=== PATIENT | female | born 1950 | race Native Hawaiian/Other Pacific Islander ===

== ENCOUNTER 2016-11-03 10:23 | Outpatient (CLI) | payer OTHER ==
[~2016-11-03 10:23] MED LIST: ALPR0.5T24 PO; DEPO-ESTRADI5 MG/ML IM; DEXL60CA4 PO; DULO60CA2 PO; LUBI24CA PO; RANI150T78 PO
== END 2016-11-03 19:08 | disposition home or self-care (01) ==
LOC: NM 10:23
DX: K21.9 Gastro-esophageal reflux disease without esophagitis (principal); R14.0 Abdominal distension (gaseous)
CPT/HCPCS: A9541

== ENCOUNTER 2017-05-26 11:45 | Outpatient (CLI) | payer OTHER | END 2017-05-26 12:45 | disposition home or self-care (01) | LOC: RAD 11:45 | DX: R05 Cough (principal); R06.02 Shortness of breath ==

== ENCOUNTER 2017-09-26 10:48 | Outpatient (CLI) | payer OTHER | END 2017-09-26 18:02 | disposition home or self-care (01) | LOC: MAMMO 10:48 | DX: Z12.31 Encounter for screening mammogram for malignant neoplasm of breast (principal) ==

== ENCOUNTER 2017-10-13 12:38 | Outpatient (CLI) | payer OTHER ==
[2017-10-13 13:33] LABS: PLATELET COUNT 287 K/uL (152-353)
[2017-10-13 13:52] LABS: POTASSIUM 4.6 mmol/L (3.6-5.2); SODIUM 137 mmol/L (136-145)
== END 2017-10-14 05:20 | disposition home or self-care (01) ==
LOC: LAB 12:38
PROVIDERS: Nurse Practitioner Family
DX: E11.9 Type 2 diabetes mellitus without complications (principal); J44.9 Chronic obstructive pulmonary disease, unspecified; F41.8 Other specified anxiety disorders; R30.0 Dysuria; R53.82 Chronic fatigue, unspecified; R53.81 Other malaise; Z79.899 Other long term (current) drug therapy; Z51.81 Encounter for therapeutic drug level monitoring
CPT/HCPCS: 80053; 80061; 83036; 84436; 84443; 85027

== ENCOUNTER 2017-11-16 11:53 | Outpatient (CLI) | payer OTHER | END 2017-11-16 22:18 | disposition home or self-care (01) | LOC: LABW 11:53 | DX: Z01.818 Encounter for other preprocedural examination (principal) | CPT/HCPCS: 36415; 80323; 86140 ==

== ENCOUNTER 2018-03-28 10:04 | Outpatient (CLI) | payer OTHER | END 2018-03-28 20:01 | disposition home or self-care (01) | LOC: CT 10:04 | DX: R06.02 Shortness of breath (principal); Z87.891 Personal history of nicotine dependence | CPT/HCPCS: 94640; 94664 ==

== ENCOUNTER 2019-06-24 18:36 | Outpatient (CLI) | payer OTHER ==
[2019-06-24 20:05] LABS: PLATELET COUNT 367 K/uL (152-353)
[2019-06-24 20:22] LABS: POTASSIUM 4.6 mmol/L (3.6-5.2)
== END 2019-06-24 20:10 | disposition home or self-care (01) ==
LOC: LAB 18:36
PROVIDERS: Nurse Practitioner Family
DX: Z00.00 Encounter for general adult medical examination without abnormal findings (principal); J44.9 Chronic obstructive pulmonary disease, unspecified; E11.9 Type 2 diabetes mellitus without complications; F41.8 Other specified anxiety disorders; K21.9 Gastro-esophageal reflux disease without esophagitis; E78.49 Other hyperlipidemia; Z79.899 Other long term (current) drug therapy
CPT/HCPCS: 80053; 80061; 83036; 84439; 84443; 85027

== ENCOUNTER 2019-08-01 13:02 | Outpatient (CLI) | payer OTHER | END 2019-08-01 23:32 | disposition home or self-care (01) | LOC: MAMMO 13:02 | DX: Z12.31 Encounter for screening mammogram for malignant neoplasm of breast (principal) ==

== ENCOUNTER 2019-12-10 14:19 | Outpatient (CLI) | payer OTHER ==
[2019-12-10 14:37] LABS: PLATELET COUNT 339 K/uL (152-353)
[2019-12-10 14:52] LABS: POTASSIUM 4.6 mmol/L (3.6-5.2)
== END 2019-12-10 19:37 | disposition home or self-care (01) ==
LOC: LAB 14:19
PROVIDERS: Nurse Practitioner Family
DX: Z00.00 Encounter for general adult medical examination without abnormal findings (principal); F41.8 Other specified anxiety disorders; E11.9 Type 2 diabetes mellitus without complications; J44.9 Chronic obstructive pulmonary disease, unspecified; E78.49 Other hyperlipidemia; K21.9 Gastro-esophageal reflux disease without esophagitis; R53.81 Other malaise; Z79.899 Other long term (current) drug therapy; R53.82 Chronic fatigue, unspecified; E55.9 Vitamin D deficiency, unspecified
CPT/HCPCS: 80053; 80061; 82306; 83036; 84439; 84443; 84481; 85027

== ENCOUNTER 2020-04-21 11:36 | Outpatient (CLI) | payer OTHER ==
[2020-04-21 12:10] LABS: PLATELET COUNT 338 K/uL (152-353)
[2020-04-21 12:52] LABS: POTASSIUM 4.5 mmol/L (3.6-5.2)
== END 2020-04-21 20:38 | disposition home or self-care (01) ==
LOC: LAB 11:36
PROVIDERS: Nurse Practitioner Family
DX: Z00.00 Encounter for general adult medical examination without abnormal findings (principal); F41.8 Other specified anxiety disorders; E11.9 Type 2 diabetes mellitus without complications; K21.9 Gastro-esophageal reflux disease without esophagitis; J44.9 Chronic obstructive pulmonary disease, unspecified; E78.49 Other hyperlipidemia; Z79.899 Other long term (current) drug therapy; R53.82 Chronic fatigue, unspecified
CPT/HCPCS: 80053; 80061; 83036; 84439; 84443; 84481; 85027

== ENCOUNTER 2020-07-22 14:00 | Outpatient (CLI) | payer OTHER | END 2020-07-22 22:28 | disposition home or self-care (01) | LOC: RAD 14:00 | DX: M54.5 Low back pain (principal) ==

== ENCOUNTER 2020-08-11 10:02 | Outpatient (CLI) | payer OTHER | END 2020-08-11 23:32 | disposition home or self-care (01) | LOC: MAMMO 10:02 | DX: Z12.31 Encounter for screening mammogram for malignant neoplasm of breast (principal) ==

== ENCOUNTER 2021-12-27 09:27 | Outpatient (CLI) | payer OTHER | END 2021-12-27 19:06 | disposition home or self-care (01) | LOC: MAMMO 09:27 | PROVIDERS: ATTEND Nurse Practitioner Family | DX: Z12.31 Encounter for screening mammogram for malignant neoplasm of breast (principal) ==

== ENCOUNTER 2022-03-03 10:00 | Emergency (ER) | payer OTHER ==
[~2022-03-03] VITALS: Ht 165.1 cm; Wt 69.4 kg
[2022-03-03 11:18] LABS: PLATELET COUNT 279 K/uL (152-353)
[2022-03-03 11:27] LABS: POTASSIUM 3.6 mmol/L (3.6-5.2)
[2022-03-03] MEDS ORDERED: LEVOFLOXACIN500 MG PO (11:47)
[2022-03-03] MEDS ORDERED: ATROVENT HFA17 MCG INH (11:47)
[2022-03-03] MEDS ORDERED: ALBU90AE13 INH (11:47)
[2022-03-03] MEDS ORDERED: PRED20TA27 PO (11:47)
[2022-03-03 12:11] VITALS: BP 106/39; TEMP 98.2
== END 2022-03-03 12:15 | disposition home or self-care (01) ==
LOC: ED 10:00
PROVIDERS: Emergency Medicine
DX: J44.9 Chronic obstructive pulmonary disease, unspecified (principal); F17.210 Nicotine dependence, cigarettes, uncomplicated
CPT/HCPCS: 80053; 85027; 87040; 93005; 94664; 96372; 99283; J2930